=== PATIENT | male | born 1970 | race Hispanic/Latino ===

== ENCOUNTER 2018-10-04 08:00 | Emergency (ER) | payer OTHER ==
[2018-10-04] MEDS ORDERED: OCTYL 2-CYANOACRYLATE 1 EACH TP ONE (09:21)
[2018-10-04] MEDS ORDERED: TETANUS/DIPHTHERIA TOXOID [ADULT] 0.5 ML VIAL IM ONE ×2 (09:21→10:24)
== END 2018-10-04 10:06 | disposition home or self-care (01) ==
LOC: EDH 08:00
DX: S61.217A Laceration without foreign body of left little finger without damage to nail, initial encounter (principal); K21.9 Gastro-esophageal reflux disease without esophagitis; F43.10 Post-traumatic stress disorder, unspecified; Z98.890 Other specified postprocedural states; X58.XXXA Exposure to other specified factors, initial encounter; Y93.89 Activity, other specified; Y92.89 Other specified places as the place of occurrence of the external cause; Y99.8 Other external cause status
CPT/HCPCS: 12041; 73140; 90714

== ENCOUNTER 2021-10-01 07:13 | Emergency (ER) | payer OTHER ==
[~2021-10-01] VITALS: Ht 188 cm; Wt 108.9 kg
[2021-10-01 08:17] VITALS: BP 108/84
[2021-10-01] MEDS ORDERED: DEXAMETHASONE SOD PHOSPHATE 4 MG/ML 1ML VIAL IM SCH (09:00)
[2021-10-01] MEDS ORDERED: DEXAMETHASONE SOD PHOSPHATE 10MG/ML 1ML VIAL ONE (09:06)
== END 2021-10-01 09:11 | disposition home or self-care (01) ==
LOC: EDH 07:13
DX: F41.0 Panic disorder [episodic paroxysmal anxiety] (principal); J02.9 Acute pharyngitis, unspecified; Z20.822 Contact with and (suspected) exposure to COVID-19; Z79.52 Long term (current) use of systemic steroids; Z88.1 Allergy status to other antibiotic agents; Z88.2 Allergy status to sulfonamides; F43.10 Post-traumatic stress disorder, unspecified
CPT/HCPCS: 87635; 87880; 96372; 99283; C9803; J1100